=== PATIENT | male | born 1995 | race Caucasian/White ===

== ENCOUNTER 2024-06-30 08:32 | Outpatient (REF) | payer OTHER, SELFPAY | END 2024-06-30 08:33 | disposition home or self-care (01) | LOC: HO.SH 08:32 | PROVIDERS: PCP Internal Medicine; Visit Provider Physician Assistant | DX: Z01.118 Encounter for examination of ears and hearing with other abnormal findings (principal); H90.3 Sensorineural hearing loss, bilateral | CPT/HCPCS: 92557; 92567; 92588 ==

== ENCOUNTER 2024-08-14 14:24 | Outpatient (REF) | payer OTHER, SELFPAY ==
--- OUTSIDE RECORDS SUMMARY | 2024-08-14 17:12 | XMS_ITS ---
Author Organization [facility] Address [address] [place] [id number] Care Team Providers Care Air Traffic Supervisor Name Role Phone DEVYN BETTY Unavailable [phone] Allergies No Known Allergies Results Component Value Reference Range Notes HIV Ab/p24 Ag with Reflex-08 [id number] Reviewed date:06/15/2024 07:53:29 AM Interpretation:Negative Performing Lab:[facility], [address] [facility], [address], [place], Phone - [phone], Director - [facility] Notes/Report: HIV Ab/p24 Ag Screen Non Reactive Non Reactive HIV-1/HIV-2 antibodies and HIV-1 p24 antigen were NOT detected. There is no laboratory evidence of HIV infection. HIV Negative M genitalium JESSICA, Urine-1800 25 Reviewed date:06/17/2024 07:19:39 AM Interpretation:Negative Performing Lab:[facility], [address] [facility], [place], Phone - [phone], Director - Ryley Notes/Report: Mycoplasma genitalium JESSICA Negative Negative REASON FOR VISIT Mycoplasma retesting, STI screening Medications Medication SIG (Take, Route, Fr equency, Duration) Notes Start Date End Date Status ZyrTEC Not-Taking Social History Sex Assigned At : Social History Observation Description Sex Assigned At Male Vital Signs Blood pressure systolic 124 mm Hg 06/13/20 24 Blood pressure diastolic 78 mm Hg 024 Height 6'1 in 06/13/2024 Weight 205.8 lbs 06/13/2024 BMI 27.15 kg/m2 06/13/2024 Encounters Encounter Location Date Provider Diagnosis [facility] [place], [place] [id number] 06/13/2024 BETTY GABAI Counseling, unspecif ied Z71.9 ; Encounter for screening for other infectious and parasitic diseases Z11.8 ; Other problems related to lifestyle Z72.89 and Encounter for screening for human immunodeficiency virus [HIV] Z11.4 Assessments Encounter Date Diagnosis (ICD Code) Assessment Notes Treatment Notes Treatment Clinical Notes Section Notes 06/13/2024 Counseling, unspecified (ICD-10 - Z71.9) Spent ___ minutes doing the following: Chart Prep Obtaining/review ing history Performing medically necessary exam Counseling/Coord ination of Care Documenting the visit Educating the patient Ordering medication/test/ procedures Communication of test results Established Patient: 05578 10 Minutes 06/13/2024 Encounter for screening for other infectious and parasitic diseases (ICD-10 - Z11.8) Clt reports they took meds and tolerated well. Partner was also treated, and they abstained x 14 days while on regimen. Denies change in partner or concern of re exposure. Will re test, although low likelihood of persistent positive Spent ___ minutes doing the following: Chart Prep Obtaining/review ing history Performing medically necessary exam Counseling/Coord ination of Care Documenting the visit Educating the patient Ordering medication/test/ procedures Communication of test results Established Patient: 02912 10 Minutes 06/13/2024 Other problems related to lifestyle (ICD-10 - Z72.89) Spent ___ minutes doing the following: Chart Prep Obtaining/review ing history Performing medically necessary exam Counseling/Coord ination of Care Documenting the visit Educating the patient Ordering medication/test/ procedures Communication of test results Established Patient: 11655 10 Minutes 06/13/2024 Encounter for screening for human immunodeficiency virus [HIV] (ICD-10 - Z11.4) Redraw of blood d/t previous TNP Spent ___ minutes doing the following: Chart Prep Obtaining/review ing history Performing medically necessary exam Counseling/Coord ination of Care Documenting the visit Educating the patient Ordering medication/test/ procedures Communication of test results Established Patient: 32019 10 Minutes Plan Of Treatment Treatment Notes Assessment Notes Encounter for screening for other infectious and parasitic diseases Clt reports they took meds and tolerated well. Partner was also treated, and they abstained x 14 days while on regimen. Denies change in partner or concern of re exposure. Will re test, although low likelihood of persistent positive Encounter for screening for human immunodeficiency virus [HIV] Redraw of blood d/t previous TNP Next Appt Details Follow Up: prn, Reason: Progress Notes * Jose ZUÑIGAOB:1995 (29 yo M)Acc No.[id number]:06/13/2024 Progress Notes Patient:?Daniel ZUÑIGA Provider:?Betty Smith NP :1995???Age:29 Y???Sex:Male Hank e:06/13/2024 Address:[address] [place] [address], [facility], [id number] Subjective: * Chief Complaints: * ???Mycoplasma retestingSTI s creening * HPI: ???Visit Narrative:? Clt was treated for mycoplasma genitalium last month, here for re test. Denies change in partner since last tested. ?Current form of control:?w/d.?Presenting Symptoms:?no Sx or concerns.?Last date of UPI:?06/11/2024.?Other Notes for the Clinician:?Clt requesting routine STI screening and mycoplasma retesting. Denies any changes in partners since last visit.? * Medical History:? * Surgical History:?tonsillect waylon * Hospitalization/Major Diagno stic Procedure:?No Hospitalization History. * Family History:? No known family history. * Social History:?Food Access:?Food Access?The Client's current access to food is?Secure Food Access ???Housing:?Housing?The client's current living situation is:?stable housing ???Reproductive Life Plan:?Reproductive Life Plan?Do you want to have children??Yes, I want to have children ?How long would you like to wait until you/your partner becomes ??1 - 5 years ?How sure are you that you will be able to use your control method without any problems??Sure ???Sexual History:?Sexual History?Sexual History Reviewed:?Partners, Practices, Protection/Past STIs, Prevention of ?Currently sexually active??Yes ?Sexually active with:?Women ?Number of female partners?1 ?Your sexual activities include:?oral intercourse, vaginal intercourse ?Reviewed types of EC??No ?Do you use condoms??No ?Date of last unprotected intercourse:?06/11/2024 ?Number of partners in past 3 months:?1 ?Number of partners in past year:?1 ?What is the client's primary method to prevent at the end of their visit??Withdrawal ?Does your partner(s) currently have any STIs??No ?Completed Gardasil vaccination series??No ???HIV Risk Assessment:?Additional Questions?Is an HIV Risk Assessment being conducted??Yes ?Have you been tested for HIV before??Yes ?Did you have a blood transfusion prior to 1985??No ?Do you have an unlicensed body piercing or tattoo??No ???PrEP for HIV:?PrEP for HIV?Is the client interested in beginning/continuing PrEP for HIV??No ???Relationships:?Relationships?Has the client experienced any of the following:?Client has never experienced harmful relationships ???Human Trafficking:?Human Trafficking?Experienced:?No ???Tobacco Use:?Tobacco Use?Do you/have you used tobacco??No ?Tobacco Smoking Status?Never smoker ???Drugs/Alcohol:?Drug/Alcohol Use?Do you or have you used drugs??No ?Do you or have you used alcohol??Yes, currently occasional use ???Counseling Provided:?Counseling Provided?Please indicate the length of time, in minutes, that counseling was provided.?6 ?Counseling Was Provided By:?obi * Medications:?Not-Taking/PRNZ yrTEC Not-Taking/PRN ZyrTEC DiscontinuedDoxycycline Hyclate 100 MG Tablet 1 tablet Orally Twice daily Complete doxycycline regimen prior to starting moxifloxacin regimenMoxifloxacin HCl 400 MG Tablet 1 tablet Orally Once a day Complete doxycycline regimen prior to starting moxifloxacin regimenMedication List reviewed and reconciled with the patientDiscontinued Doxycycline Hyclate 100 MG Tablet 1 tablet Orally Twice daily Complete doxycycline regimen prior to starting moxifloxacin regimenDiscontinued Moxifloxacin HCl 400 MG Tablet 1 tablet Orally Once a day Complete doxycycline regimen prior to starting moxifloxacin regimenMedication List reviewed and reconciled with the patient * Allergies:?N.K.D.A.no[Allerg ies Verified] Objective: * Vitals:?BP:124/78mm Hg, Ht: 6'1 , Wt:205.8lbs, BMI:27.15Index, Ht-cm: 185.42, Wt-k.35. * Examination: ???General Examination: ?GENERAL APPEARANCE:?pleasant, in no acute distress.?PSYCH:?alert, oriented.? Assessment: * Assessment: 1.?Encounter for screening f or other infectious and parasitic diseases - Z11.8 (Primary)???2.?Counseling, unspecified - Z71.9???3.?Other problems related to lifestyle - Z72.89???4.?Encounter for screening for human immunodeficiency virus [HIV] - Z11.4??? Spent ___ minutes doing the following: Chart Prep Obtaining/reviewing history Performing medically necessary exam Counseling/Coordination of Care Documenting the visit Educating the patient Ordering medication/test/procedures Communication of test results Established Patient: 94252 10 Minutes Plan: * Treatment: 2.?Encounter for screening f or human immunodeficiency virus [HIV]?LAB: HIV Ab/p24 Ag with Reflex-[id number] (Collection Date & Time - 06/13/2024 10:53 AM) Notes: Redraw of blood d/t previous TNP?? * Procedure Codes:? * Follow Up:?prn * Billing Information: * Visit Code:? 93023 Existing - Minimal Complexity (IN USE). * Procedure Codes:? * Sign off status: Completed true * Provider:?Betty Smith NP Date:? 024 Generated for Hany avila/Nicole/eTransmitting on:?08/14/2024 05:12 PM EST History and Physical Notes * HPI (History of Present Illness) Category Sub-Category Detail Notes Category Not es Visit Narrative Current form of control: w/d Presenting Symptoms: no Sx or concerns Other Notes for the Clinician: Clt reque sting routine STI screening and mycoplasma retesting. Denies any changes in partners since last visit Last date of UPI: 06/11/2024 Examination Category Sub-Category Detail Notes Category Not es General Examination GENERAL APPEARANCE: pleasant, in n o acute distress PSYCH: alert, oriented
--- OUTSIDE RECORDS SUMMARY | 2024-08-14 17:12 | XMS_ITS | Patient Health Record ---
Author Organization [facility] Address [address] [place] [id number] Care Team Providers Care Esthetician Facialist Name Role Phone ASA SHEPARD Unavailable [phone] ARYCOLIN Jarquin Unavailable [phone] Allergies No Known Allergies Results Component Value Reference Range Notes HIV Ab/p24 Ag with Reflex-08 [id number] Reviewed date:06/15/2024 07:53:29 AM Interpretation:Negative Performing Lab:[facility], [address], [address], [place], Phone - [phone], Director - [facility] Notes/Report: HIV Ab/p24 Ag Screen Non Reactive Non Reactive HIV-1/HIV-2 antibodies and HIV-1 p24 antigen were NOT detected. There is no laboratory evidence of HIV infection. HIV Negative M genitalium JESSICA, Urine-1800 25 Reviewed date:06/17/2024 07:19:39 AM Interpretation:Negative Performing Lab:[facility] [place], [address] [facility], Phone - [phone], Director - Ryley Notes/Report: Mycoplasma genitalium JESSICA Negative Negative Written Authorization Reviewed date:06/06/2024 12:20:02 PM Interpretation: Performing Lab:[facility] [place], [address] [facility], [place], Phone - [phone], Director - Ryley Notes/Report: Written Authorization Written Authorization Received. Authorization received from [employer] 05-30-2024 Logged by David Courtney Genital Mycoplasmas JESSICA, Uri [id number] Reviewed date:05/25/2024 08:51:37 AM Interpretation:Mycoplasma G. Positive Performing Lab:[facility] [place], [address] [facility], [place], Phone - [phone], Director - Ryley Notes/Report: Test(s) 237221-Wlffqwhshf hominis JESSICA; 492329-Chbhhkinoa spp JESSICA was developed and its performance characteristics determined by [facility]. It has not been cleared or approved by the Food and Drug Administration. Mycoplasma genitalium JESSICA Positive Negative Mycoplasma hominis JESSICA Negative Negative Ureaplasma spp JESSICA Negative Negative Ct, Ng, Trich vag by JESSICA-[id number] Reviewed date:05/08/2024 10:49:48 AM Interpretation:Negative Performing Lab:[facility] [place], [address], [address], [place], Phone - [phone], Director - [facility] Notes/Report: Chlamydia by JESSICA Negative Negative Gonococcus by JESSICA Negative Negative Trich vag by JESSICA Negative Negative Genital Mycoplasmas JESSICA, [facility] [id number] Reviewed date:05/22/2024 02:54:11 PM Interpretation:TNP Performing Lab:[facility], [address] [place] [address], Phone - [phone], Director - [facility] Notes/Report: Test(s) 492500-Mnfmjmylpv hominis JESSICA; 868601-Iuwfmvdvma spp JESSICA was developed and its performance characteristics determined by [facility]. It has not been cleared or approved by the Food and Drug Administration. Mycoplasma genitalium JESSICA TNP Te st not performed. No Aptima transport received. Mycoplasma hominis JESSICA TNP Test not performed Ureaplasma spp JESSICA TNP Test not performed Request Problem TNP Test not performed. No Aptima transport received. TEST: [id number] Genital Mycoplasmas JESSICA, Swab HCV Antibody RFX to Quant PC [id number] Reviewed date:05/08/2024 10:50:16 AM Interpretation:Negative Performing Lab[facility], [address], [place], Phone - [phone], Director - [facility] Notes/Report: HCV Ab Non Reactive Non Reactive Interpretation: Not infected with HCV unless early or acute infection is suspected (which may be delayed in an immunocompromised individual), or other evidence exists to indicate HCV infection. T pallidum Screening [place] -[id number] Reviewed date:05/08/2024 10:50:24 AM Interpretation:Negative Performing Lab:[facility] [place], [address], [address], [place], Phone - [phone], Director - [facility] Notes/Report: T pallidum Antibodies Non Reactive Non Reactive Hepatitis B Surf Ab Quant-00 [id number] Reviewed date:05/08/2024 10:32:50 AM Interpretation:Not Immune Performing Lab:[facility], [address], [address], [place], Phone - [phone], Director - [facility] Notes/Report: Hepatitis B Surf Ab Quant 3.8 Immunity>10 mIU /mL Status of Immunity Anti-HBs Level Inconsistent with Immunity 0.0 - 10.0 Consistent with Immunity >10.0 HBsAg Screen-[id number] Reviewed date:05/08/2024 10:49:58 AM Interpretation:Negative Performing Lab:[facility], [address], [address], [place], Phone - [phone], Director - [facility] Notes/Report: HBsAg Screen Negative Negative APTIMA COMBO 2 CT/NG, Throat /Pharyngeal Reviewed date:05/15/2024 12:53:10 PM Interpretation:Negative Performing Lab:[facility], [facility] [place], [address] Gregory Jaime DO Notes/Report: GONORRHEA, AMPLIFIED NEGATIVE NEGATIVE CHLAMYDIA, AMPLIFIED NEGATIVE NEGATIVE DNA Test Results SEX: M : 1995 AGE: 28 [id number] CLINIC ID: [id number] SS: PHYSICIAN: COLIN MCALLISTER CNM COLLECTED BY: [id number] Specimen Source: Throat/Pharyngeal Specimen Type: Swab, Cristobal PCR Medium Neisseria gonorrhoeae: NEGATIVE Normal Value: Negative Chlamydia trachomatis: NEGATIVE Normal Value: Negative Reason For Referral No Information Medications Medication SIG (Take, Route, Fr equency, Duration) Notes Start Date End Date Status ZyrTE Not-Taking Social History Sex Assigned At : Social History Observation Description Sex Assigned At Male Vital Signs Blood pressure diastolic 78 mm Hg 06/13/2024 Height 6'1 in 06/13/2024 Blood pressure systolic 124 mm Hg 06/13/2024 Weight 205.8 lbs 06/13/2024 BMI 27.15 kg/m2 06/13/2024 Encounters Encounter Location Date Provider Diagnosis [address] [id number] 05/04/2024 COLIN MCALLISTER Encounter for screen ing for infections with a predominantly sexual mode of transmission Z11.3 ; Counseling, unspecified Z71.9 ; Other problems related to lifestyle Z72.89 ; Encounter for screening for other viral diseases Z11.59 ; Encounter for screening for other infectious and parasitic diseases Z11.8 ; Encounter for screening for human immunodeficiency virus [HIV] Z11.4 and [facility] [id number] 06/13/[facility]24 ASA SHEPARD Counseling, unspecif ied Z71.9 ; Encounter for screening for other infectious and parasitic diseases Z11.8 ; Other problems related to lifestyle Z72.89 and Encounter for screening for human immunodeficiency virus [HIV] Z11.[address] [id number] 05/05/2024 COLIN MCALLISTER [address] [id number] 05/22/2024 COLIN MCALLISTER Assessments Encounter Date Diagnosis (ICD Code) Assessment Notes Treatment Notes Treatment Clinical Notes Section Notes 05/04/2024 Encounter for screening for infections with a predominantly sexual mode of transmission (ICD-10 - Z11.3) Discussed STI risks, screenings that are available through [facility] and safe sex. Clt aware of lab processing times and how to view results on portal and how positive results will be communicated Need 2 out of 3 Sections from A-C Section A) Problems (only need one from below) One acute or uncomplicated illness/injury Section B) Data (at least one of the following categories in this section) Category 1: (Choose 2 of the following): Order unique tests Section C) Risk Document low risk of morbidity/morta lity 05/04/2024 Counseling, unspecified (ICD-10 - Z71.9) Need 2 out of 3 Sections from A-C Section A) Problems (only need one from below) One acute or uncomplicated illness/injury Section B) Data (at least one of the following categories in this section) Category 1: (Choose 2 of the following): Order unique tests Section C) Risk Document low risk of morbidity/morta lity 06/13/2024 Encounter for screening for other infectious and parasitic diseases (ICD-10 - Z11.8) Clt reports they took meds and tolerated well. Partner was also treated, and they abstained x 14 days while on regimen. Denies change in partner or concern of re exposure. Will re test, although low likelihood of persistent positive Spent ___ minutes doing the following: Chart Prep Obtaining/revie wing history Performing medically necessary exam Counseling/Coor dination of Care Documenting the visit Educating the patient Ordering medication/test /procedures Communication of test results Established Patient: 34337 10 Minutes 06/13/2024 Counseling, unspecified (ICD-10 - Z71.9) Spent ___ minutes doing the following: Chart Prep Obtaining/revie wing history Performing medically necessary exam Counseling/Coor dination of Care Documenting the visit Educating the patient Ordering medication/test /procedures Communication of test results Established Patient: 82954 10 Minutes 06/13/2024 Other problems related to lifestyle (ICD-10 - Z72.89) Spent ___ minutes doing the following: Chart Prep Obtaining/revie wing history Performing medically necessary exam Counseling/Coor dination of Care Documenting the visit Educating the patient Ordering medication/test /procedures Communication of test results Established Patient: 99316 10 Minutes 05/04/2024 Other problems related to lifestyle (ICD-10 - Z72.89) Need 2 out of 3 Sections from A-C Section A) Problems (only need one from below) One acute or uncomplicated illness/injury Section B) Data (at least one of the following categories in this section) Category 1: (Choose 2 of the following): Order unique tests Section C) Risk Document low risk of morbidity/morta lity 06/13/2024 Encounter for screening for human immunodeficiency virus [HIV] (ICD-10 - Z11.4) Redraw of blood d/t previous TNP Spent ___ minutes doing the following: Chart Prep Obtaining/revie wing history Performing medically necessary exam Counseling/Coor dination of Care Documenting the visit Educating the patient Ordering medication/test /procedures Communication of test results Established Patient: 98643 10 Minutes 05/04/2024 Encounter for screening for other viral diseases (ICD-10 - Z11.59) Need 2 out of 3 Sections from A-C Section A) Problems (only need one from below) One acute or uncomplicated illness/injury Section B) Data (at least one of the following categories in this section) Category 1: (Choose 2 of the following): Order unique tests Section C) Risk Document low risk of morbidity/morta lity 05/04/2024 Encounter for screening for other infectious and parasitic diseases (ICD-10 - Z11.8) Need 2 out of 3 Sections from A-C Section A) Problems (only need one from below) One acute or uncomplicated illness/injury Section B) Data (at least one of the following categories in this section) Category 1: (Choose 2 of the following): Order unique tests Section C) Risk Document low risk of morbidity/morta lity 05/04/2024 Encounter for screening for human immunodeficiency virus [HIV] (ICD-10 - Z11.4) Need 2 out of 3 Sections from A-C Section A) Problems (only need one from below) One acute or uncomplicated illness/injury Section B) Data (at least one of the following categories in this section) Category 1: (Choose 2 of the following): Order unique tests Section C) Risk Document low risk of morbidity/morta lity 05/04/2024 Contact with or exposure to STI (ICD-10 - Z20.2) Reviewed clt's exposure concerns, testing options and presumptive tx options. Clt is currently asymptomatic. Partner tx may help to lower reinfection for partner. Clt would like to do testing initially and treat if positive. No sexual activity until testing and tx plan confirmed. Will confirm if clt testing positive and if so mycoplasma genitalium vs hominis as tx regimens differ slightly: doxy plus moxi x1 wk each vs doxy x 1 wk for hominis Need 2 out of 3 Sections from A-C Section A) Problems (only need one from below) One acute or uncomplicated illness/injury Section B) Data (at least one of the following categories in this section) Category 1: (Choose 2 of the following): Order unique tests Section C) Risk Document low risk of morbidity/morta lity Plan Of Treatment No Information Insurance Providers Payer Name Payer Address Payer Phone Subscriber Number Group Number Insured Name Patient Relationship to Insured Coverage Start Date Coverage End Date [place] [address] [place] [id number] Daniel Brenner Self - patient is the insured Medical (General) History Medical History History ICD Code Mycoplasma genitalium Surgical History Surgery Date(Month/Year) tonsillectomy
--- OUTSIDE RECORDS SUMMARY | 2024-08-14 17:12 | XMS_ITS | Encounter Summary ---
Author Organization [employer] Address [address] [place] [address] Care Team Providers Care Senior Staff Specialized Employment Name Role Phone Anna Galo MD Primary Care Provider [phone] Reason for Visit * Reason Onset Date Comments Exposure to STD 04/28/2024 Encounter Details Date Type Department Care Team ([facility] st Contact Info) Description 04/28/2024 Nurse Triage Adult Medicine [address] [phone] Anna Galo MD [address] [place] [id number] Exposure to STD Social History Tobacco Use Types Packs/Day Years Used Date Smoking Tobacco: Never Smokeless Tobacco: Never Alcohol Use Standard Drinks/Week Comments Yes 0 (1 standard drink = 0.6 oz pur e alcohol) Sex and Gender Information Value Date Recorded Sex Assigned at Not on file Legal Sex Male 2:45 PM EDT Gender Identity Not on file Sexual Orientation Not on file documented as of this encounter Progress Notes * Keyla Manzano RN - 04/28/2024 3:32 PM EST Answer Assessment - Initial Assessment Questions 1. SYMPTOMS: Do you have any symptoms of a sexually transmitted infection (STI)? If Yes, ask: What are they? none 2. TYPE: What sexually transmitted infection do you have questions about? none 3. EXPOSURE: Were you exposed to an STI? If Yes, ask: When and what kind of exposure? none 4. PREVENTION: Do you have questions about preventing AIDS and other sexually transmitted infections? Want to have testing done 5. : Is there any chance you are ? When was your last menstrual period? N/A Protocols used: STI [id number] * Hilary Polina Lira - 04/28/2024 3:24 PM EST Patient call requires triage: Symptoms patient is presenting: Wants an STD test How long has patient had these symptoms?: no symptoms just wants to be checked For ALL patients calling to schedule any appointment (routine, sick visit, follow up, consult, etc.) in the outpatient setting please ask the following questions: Do you have fever of higher than 101, sore throat with difficulty swallowing or severe shortness ofbreath? no If YES to any of these above symptoms, send a message to triage and do not book. Red dot. If no, an audio or video visit should be booked. Have you had close contact with someone with Coronavirus in the last 14 days? no Have you traveled abroad? no Have you traveled recently to another state outside of [place], [place], [place], [place], [place], [place], [place]? no o If yes, did you quarantine for 14 days or have a negative covid test? no If yes to any of the above, patient is not to be scheduled in office until after 14 day quarantine or negative covid test. If pain or injury related was it due to an accident at work or from a motor vehicle accident? If yes, date of accident/Injury: No If yes, gather 3rd libertarian insurance information Third Libertarian Information: not applicable PCP: Anna Galo MD Payor: / No coverage found. documented in this encounter Plan of Treatment Not on file documented as of this encounter Visit Diagnoses Not on filedocumented in this encounter Care Teams Senior Staff Specialized Employment Relationship Specialty Start Date End Date Anna Galo MD [address] [place] [phone] PCP - General 08/14/22 documented as of this encounter
--- OUTSIDE RECORDS SUMMARY | 2024-08-14 17:12 | XMS_ITS | Clinical Summary ---
Author Organization Patient Business Ser [facility] Address [address] [place] [address] Care Team Providers Care Nascar Racer Name Role Phone Anna Galo MD Primary Care Provider [phone] Allergies Active Allergy Reactions Criticality Noted Date Comments Aspirin 06/21/2024 Medications ibuprofen (ADVIL,MOTRIN) 800 mg tablet Take 1 tablet (800 mg total) by mouth every 8 (eight) hours if needed (Pain). 4 Active triamcinolone (KENALOG) 0.1 % cream Apply 1 applicator topically 2 (two) times a day. 4 Active cetirizine (ZyrTEC) 10 mg capsuleIndicati ons:Seasonal allergies Take 1 capsule (10 mg total) by mouth 1 (one) time each day. 90 capsule 1 5 Active fluticasone propionate (FLONASE) 50 mcg/actuation nasal spray Administer 1 spray into each nostril 1 (one) time each day. 16 g 1 5 Active Active Problems Problem Noted Date Diagnosed Date Seasonal allergies 06/21/2024 Tonsil stone 03/16/2023 Gastroesophageal reflux disease 03/16/2023 Enlarged tonsils 03/16/2023 Dyspnea on exertion 03/16/2023 Dysphagia 03/16/2023 Acute viral conjunctivitis of both eyes 03/16/20 23 Encounters Date Type Department Care Team Description 06/30/2024 Telephone Adult Medicine [address] [phone] Anna Galo MD Provider Call Back ; Results; Referral 06/21/2024 8:30 AM EST Office Visit Adult Medicine [address] [phone] Ashli Lincoln PA Routine physical examination (Primary Dx); Decreased hearing, unspecified laterality; Seasonal allergies; Need for prophylactic vaccination and inoculation against influenza; Need for Tdap vaccination; Screen for sexually transmitted diseases from Last 3 Months Immunizations Name Administration Dates Next Due DTaP (Infanrix) 6wks to less than 7yo ,09/06/1995,05/11/1995,01/29,1994 [id number] (Pentacel) 2mo to less than 5yo 09/06/1995,05/11/1995,01/29/1995,09/01 H1N1 Inj Preservative Free 04/17/2009 HPV, Quadrivalent 03/04/2010 Hep A, Unspecified 09/12/2002,11/22/2001 Hepatitis B Pediatric (Enger ix B; Recombivax HB) to less than 20 yo 06/10/1995,01/29/1995,1994 Influenza trivalent, MDCK, 0 .5mL, preservative free (Flucelvax) 6mo and older 06/21/2024 Influenza trivalent, with pr eservative (Fluzone; Afluria) 6mo and older 03/08/2015,03/04/2010,05/01/2008 MMR, measles mumps and rubel la Live (Priorix; M-M-R II) 12mo and older 05/31/1998,06/10/1995 Meningococcal MCV4P 10/13/2006 OPV 05/31/1998, 5,01/29/1995,09/01 Pfizer SARS-CoV-2 COVID-19, mRNA, LNP-S, preservative free 12/11/2020,11/21/2020 Td Tetanus diptheria (Tdvax) 7yo and older 11/14/2004 Tdap Tetanus diptheria acell ular pertussis (Boostrix; Adacel) 7yo and older 06/21/2024,03/08/2015,03/04/2010 Varicella live (Varivax) 12m o and older 11/30/2006,10/13/2006,07/22/2000 Surgical History Surgery Date Site/Laterality Comments WISDOM TOOTH EXTRACTION PROCEDURE: HISTORICAL WISDOM TEETH EXTRACTION TONSILLECTOMY 06/14/2023 - 07/14/2023 Bilateral Medical History Medical History Date Comments Patient denies medical problems DX:Patient denies medical problems Family History Medical History Relation Name Comments No Known Problems Brother 1 No Known Problems Brother 2 No Known Problems Brother 3 No Known Problems Brother 4 No Known Problems Brother 5 No Known Problems Father No Known Problems Maternal Grandfather No Known Problems Maternal Grandmother No Known Problems Mother No Known Problems Paternal Grandfather No Known Problems Paternal Grandmother No Known Problems Sister Relation Name Status Comments Brother 1 x3 Brother 2 Alive Brother 3 Alive Brother 4 Alive Brother 5 Alive Father Alive health unknown Maternal Grandfather Maternal Grandmother Mother Alive healthy Paternal Grandfather Paternal Grandmother Sister x1 Social History Tobacco Use Types Packs/Day Years Used Date Smoking Tobacco: Never Smokeless Tobacco: Never Tobacco Cessation:Counseling Given: Not Answered Alcohol Use Standard Drinks/Week Comments Yes 0 (1 standard drink = 0.6 oz pur e alcohol) occ Housing Instability Answer Date Recorde d Are you worried that in the next 2 months you may not have stable housing? No 06/21/2024 Food Access & Nutrition Answer Date Rec orded Do you have access to a vari ety of food including fruits and vegetables? Yes 06/21/2024 Access to Healthcare Answer Date Record ed Within the last 3 months, ho w many times did you visit the emergency department for your medical care? 0 06/21/2024 Health Literacy Answer Date Recorded How often do you need to hav e someone help you when you read instructions, pamphlets, or other written material from your doctor or pharmacy? Never 06/21/2024 Caregiver: How often do you need to have someone help you when you read instructions, pamphlets, or other written material from your doctor or pharmacy? Not on file 06/21/2024 Financial Risk Answer Date Recorded How hard is it for you to pa y for the very basics like food, housing, medical care, and air conditioning / heating? Not very hard 06/21/2024 Transportation Answer Date Recorded Has the lack of transportati on kept you from meetings, work, or from getting things needed for daily living? No Has the lack of transportati on kept you from medical appointments or from getting medications? No 06/21/2024 Social Isolation Answer Date Recorded How often do you feel lonely or isolated from th ose around you? Never 06/21/2024 Food Risk Answer Date Recorded Within the past 12 months we worried whether our food would run out before we got money to buy more. Never true 06/21/2024 Within the past 12 months th e food we bought just didn't last and we didn't have money to get more. Never true 06/21/2024 Dependent Care Answer Date Recorded Do you need help finding or paying for care for your loved ones. For example, childbirth educator or elderly care for an older adult? No 06/21/2024 Education Answer Date Recorded Do you think completing more education or training, like finishing a GED, going to college, or learning a trade, would be helpful for you? Yes 06/21/2024 Employment and Income Answer Date Recor ded During the last four weeks, have you been actively looking for work? Yes 06/21/2024 Living Situation Answer Date Recorded What is your living situation? 0 06/21/2024 Sex and Gender Information Value Date Recorded Sex Assigned at Not on file Legal Sex Male 2:45 PM EDT Gender Identity Not on file Sexual Orientation Not on file Obstetrics History Last Filed Vital Signs Vital Sign Reading Time Taken Comments Blood Pressure 102/70 06/21/2024 8:27 AM EST Pulse 72 06/21/2024 8:27 AM EST Temperature 36.7 ??C (98.1 ??F) 06/21/2024 8:27 AM ES T Respiratory Rate 14 06/21/2024 8:27 AM EST Oxygen Saturation - - Inhaled Oxygen Concentration - - Weight 92.4 kg (203 lb 12.8 oz) 06/21/2024 8:27 AM EST Height 181.6 cm (5' 11.5 ) 06/21/2024 8:27 AM ES T Body Mass Index 28.03 06/21/2024 8:27 AM EST Plan of Treatment Health Maintenance Due Date Last Done Comments HPV Vaccines (2 - Male 3-dose series) 04/01/2010 03/04/2010 Depression Screening 06/21/2025 06/21/2024 Social Influencers of Health Screening 06/21/2025 06/21/2024 Cholesterol Screening (Lipid Panel) 06/21/2029 06/21/2024, 01/19/2023 DTaP,Tdap,and Td Vaccines (10 - Td or Tdap) 06/21/2034 06/21/2024, 03/08/2015, 03/04/2010, Additional history exists Hepatitis B Vaccines Completed 06/10/1995, 01/29/1995, 1994 HIB Vaccines Completed 09/06/1995, 04/15, 01/29/1995, Additional history exists IPV Vaccines Completed 05/31/1998, 08/13, 05/11/1995, Additional history exists MMR Vaccines Completed 05/31/1998, 06/10/1995 Hepatitis A Vaccines Completed 09/12/2002, 11/23/19 Meningococcal ACWY Vaccine Aged Out 10/13/2006 N o longer eligible based on patient's age to complete this topic Varicella Vaccines Completed 11/30/2006, 0 10/13/2006, 07/22/2000 COVID-19 Vaccine Discontinued 12/11/2020, 11/21/2020 Hepatitis C Screening Completed 11/04/2023 HIV Screening Completed 06/21/2024, 11/04/2023 Influenza Vaccine Completed 06/21/2024, , 03/04/2010, Additional history exists Meningococcal B Vacine Aged Out No lo nger eligible based on patient's age to complete this topic Pneumococcal Vaccine: Pediatrics (0 to 5 Years) and At-Risk Patients (6 to 64 Years) Aged Out No longer eligible based on patient's age to complete this topic RSV Immunization Patients Under 20 months Aged Out No longer eligible based on patient's age to complete this topic Procedures Procedure Name Priority Date/Time Associated Diagnosis Comments CBC WITH AUTO DIFFERENTIAL Routine 06/21/2024 9:15 AM EST Routine physical examination CBC AND DIFFERENTIAL Routine 06/21/2024 9:15 AM EST Routine physical examination COMPREHENSIVE METABOLIC PANEL Routine 06/21/2024 9:15 AM EST Routine physical examination HEMOGLOBIN A1C Routine 06/21/2024 9:15 AM EST Routine physical examination LIPID PANEL WITH REFLEX TO DIRECT LDL Routine 06/21/2024 9:15 AM EST Routine physical examination THYROID STIMULATING HORMONE WITH REFLEX TO FREE T4 AND FREE T3 Routine 06/21/2024 9:15 AM EST Routine physical examination TREPONEMA PALLIDUM ANTIBODY WITH REFLEX TO RPR AND PARTICLE AGGLUTINATION Routine 06/21/2024 9:15 AM EST Screen for sexually transmitted diseases HIV 1, 2 ANTIBODY, P24 ANTIGEN WITH REFLEX TO DIFFERENTIATION Routine 06/21/2024 9:15 AM EST Screen for sexually transmitted diseases CHLAMYDIA TRACHOMATIS AND NEISSERIA GONORRHOEAE PCR Routine 06/21/2024 9:15 AM EST Screen for sexually transmitted diseases HM HEPATITIS C SCREENING Routine 11/04/2023 from Last 3 Months or Most Recently Relevant to Health Maintenance Results * HIV 1,2 antibody, p24 antigen with reflex to differentiation (06/21/2024 9:15 AM EST) HIV Combo AB/AG Negative Negative LAB CHEMISTRY METHOD 06/21/2024 1:26 PM EST [facility] Blood Venous blood specimen / Unknown Venipuncture / Unknown 06/21/2024 9:15 AM EST 06/21/2024 9:16 AM EST Narrative [facility] - 06/21/2024 1:26 PM EST This assay is a 4th generation assay allowing for earlier detection of HIV infection by detecting the presence of the HIV-1 p24 antigen as well as the traditional antibodies to HIV type 1 (including group O) and type 2. ??Use of a 4th generation assay is the current CDC recommendation for HIV screening. us Ashli SHEPHERD LAB BLOOD ORDERABLES Final Res ult [facility] [address] [place] [address], [place] [phone] * Treponema pallidum antibody with reflex to RPR and particle agglutination (06/21/2024 9:15 AM EST) [facility] T. Pallidum Antibodies Negative Negative LAB CHEMISTRY METHOD 06/21/2024 12:58 PM EST [facility] Blood Venous blood specimen / Unknown Venipuncture / Unknown 06/21/2024 9:15 AM EST 06/21/2024 9:16 AM EST Ashli SHEPHERD LAB BLOOD ORDERABLES Final Res ult Performing Organization Address [facility]/ZIP Co de Phone Number [facility] [address] [place] [address], [place] [phone] * Thyroid stimulating hormone with reflex to free t4 and free t3 (06/21/2024 9:15 AM EST) [facility] TSH 2.71 0.40 - 4.00 mcIU/mL LAB CHEMISTRY METHOD 06/21/2024 2:06 PM EST [facility] Blood Venous blood specimen / Unknown Venipuncture / Unknown 06/21/2024 9:15 AM EST 06/21/2024 9:16 AM EST Ashli SHEPHERD LAB BLOOD ORDERABLES Final Res ult Performing Organization Address City/[facility]/ZIP Co de Phone Number [facility] [address] [place] [address], [place] [phone] * (ABNORMAL) Lipid panel with reflex to direct LDL (06/21/2024 9:15 AM EST) [facility] Cholesterol 218(H) 0 - 200 mg/dL LAB CHEMISTRY METHOD 06/21/2024 1:07 PM [facility] Triglycerides 116 0 - 150 mg/dL LAB CHEMISTRY METHOD 06/21/2024 1:07 PM [facility] HDL 48 >=40 mg/dL LAB CHEMISTRY METHOD 06/21/2024 1:07 PM [facility] LDL Calculated 147(H) 0 - 100 mg/dL LAB CHEMISTRY METHOD 06/21/2024 1:07 PM [facility] VLDL Cholesterol Kevin 23.2 mg/dL LAB CHEMISTRY METHOD 06/21/2024 1:07 PM [facility] Non HDL Chol. (LDL+VLDL) 170(H) <145 mg/dL LAB CHEMISTRY METHOD 06/21/2024 1:07 PM [facility] Chol/HDL Ratio 4.5(H) 0.0 - 4.4 LAB CHEMISTRY METHOD 06/21/2024 1:07 PM [facility] Blood Venous blood specimen / Unknown Venipuncture / Unknown 06/21/2024 9:15 AM EST 06/21/2024 9:16 AM EST us Ashli SHEPHERD LAB BLOOD ORDERABLES Final Res ult [facility] [address] [place] [address], * (ABNORMAL) CBC auto differential (06/21/2024 9:15 AM EST) WBC 6.4 4.8 - 10.8 K/mcL LAB HEMETOLOGY METHOD 06/21/2024 10:39 AM [facility] RBC 4.80 4.50 - 5.50 M/mcL LAB HEMETOLOGY METHOD 06/21/2024 10:39 AM [facility] Hemoglobin 15.0 13.5 - 17.5 g/dL LAB HEMETOLOGY METHOD 06/21/2024 10:39 AM [facility] Hematocrit 46.1 42.0 - 54.0 % LAB HEMETOLOGY METHOD 06/21/2024 10:39 AM [facility] MCV 96.8 79.0 - 98.0 FL LAB HEMETOLOGY METHOD 06/21/2024 10:39 AM [facility] MCH 31.5 27.0 - 32.0 pcg LAB HEMETOLOGY METHOD 06/21/2024 10:39 AM [facility] MCHC 32.5 32.0 - 37.0 g/dL LAB HEMETOLOGY METHOD 06/21/2024 10:39 AM [facility] RDW 10.9(L) 11.0 - 15.0 % LAB HEMETOLOGY METHOD 06/21/2024 10:39 AM [facility] Platelets 267 130 - 400 K/mcL LAB HEMETOLOGY METHOD 06/21/2024 10:39 AM [facility] MPV 10.2 7.0 - 11.0 FL LAB HEMETOLOGY METHOD 06/21/2024 10:39 AM [facility] NRBC 0.0 <1.0 % LAB HEMETOLOGY METHOD 06/21/2024 10:39 AM [facility] NRBC Absolute 0.00 <0.10 K/mcL LAB HEMETOLOGY METHOD 06/21/2024 10:39 AM [facility] Neutrophils Relative 52.2 % LAB HEMETOLOGY METHOD 06/21/2024 10:39 AM [facility] Lymphocytes Relative 32.1 % LAB HEMETOLOGY METHOD 06/21/2024 10:39 AM [facility] Monocytes Relative 13.6 % LAB HEMETOLOGY METHOD 06/21/2024 10:39 AM [facility] Eosinophils Relative 1.3 % LAB HEMETOLOGY METHOD 06/21/2024 10:39 AM [facility] Basophils Relative 0.5 % LAB HEMETOLOGY METHOD 06/21/2024 10:39 AM [facility] Immature Granulocytes Relative 0.3 % LAB HEMETOLOGY METHOD 06/21/2024 10:39 AM EST [facility] Neutrophils Absolute 3.33 1.50 - 7.00 K/mcL LAB HEMETOLOGY METHOD 06/21/2024 10:39 AM [facility] Lymphocytes Absolute 2.05 1.00 - 5.00 K/mcL LAB HEMETOLOGY METHOD 06/21/2024 10:39 AM [facility] Monocytes Absolute 0.87 0.20 - 1.00 K/mcL LAB HEMETOLOGY METHOD 06/21/2024 10:39 AM [facility] Eosinophils Absolute 0.08 0.00 - 0.50 K/[facility] LAB HEMETOLOGY METHOD 06/21/2024 10:39 AM [facility] Basophils Absolute 0.03 0.00 - 0.20 K/mcL LAB HEMETOLOGY METHOD 06/21/2024 10:39 AM [facility] Immature Granulocytes Absolute 0.02 0.00 - 0.03 K/[facility] LAB HEMETOLOGY METHOD 06/21/2024 10:39 AM [facility] Blood Venous blood specimen / Unknown Venipuncture / Unknown 06/21/2024 9:15 AM EST 06/21/2024 9:16 AM EST us Ashli SHEPHERD LAB BLOOD ORDERABLES Final Res ult [facility] [address] [place] [address], * Chlamydia trachomatis and Neisseria gonorrhoeae molecular study (06/21/2024 9:15 AM EST) Neisseria gonorrhoeae PCR Negative Negative LAB MOLECULAR DIAGNOSTICS METHOD 06/21/2024 12:55 PM EST [facility] Chlamydia trachomatis PCR Negative Negative LAB MOLECULAR DIAGNOSTICS METHOD 06/21/2024 12:55 PM [facility] Swab Urine specimen / Unknown Non-blood Collection / Unknown 06/21/2024 9:15 AM EST 06/21/2024 9:16 AM EST us Ashli SHEPHERD LAB MICROBIOLOGY - GENERAL ORD ERABLES Final Result Performing Organization Address [facility]/ZIP Co de Phone Number [facility] [address] [place] [address], [place] [phone] * Hemoglobin A1c (06/21/2024 9:15 AM EST) [facility] Hemoglobin A1C 4.7 <6.5 % LAB CHEMISTRY METHOD 06/21/2024 1:04 PM [facility] Mean Bld Glu Estim. 88 mg/dL LAB CHEMISTRY METHOD 06/21/2024 1:04 PM [facility] Blood Venous blood specimen / Unknown Venipuncture / Unknown 06/21/2024 9:15 AM EST 06/21/2024 9:16 AM EST us Ashli SHEPHERD LAB BLOOD ORDERABLES Final Res ult Performing Organization Address City/[facility]/ZIP Co de Phone Number [facility] [address] [place] [address], [place] [phone] * (ABNORMAL) Comprehensive metabolic panel (06/21/2024 9:15 AM EST) [facility] Sodium 138 133 - 145 mmol/L LAB CHEMISTRY METHOD 06/21/2024 1:07 PM [facility] Potassium 4.3 3.5 - 5.5 mmol/L LAB CHEMISTRY METHOD 06/21/2024 1:07 PM [facility] Chloride 106 96 - 110 mmol/L LAB CHEMISTRY METHOD 06/21/2024 1:07 PM [facility] CO2 27 21 - 32 mmol/L LAB CHEMISTRY METHOD 06/21/2024 1:07 PM [facility] Anion Gap 5 3 - 11 LAB CHEMISTRY METHOD 06/21/2024 1:07 PM [facility] Glucose 98 70 - 100 mg/dL LAB CHEMISTRY METHOD 06/21/2024 1:07 PM [facility] BUN 14 5 - 25 mg/dL LAB CHEMISTRY METHOD 06/21/2024 1:07 PM [facility] Creatinine 1.34(H) 0.70 - 1.30 mg/dL LAB CHEMISTRY METHOD 06/21/2024 1:07 PM [facility] eGFR 73 >=60 mL/min/1. 73m2 LAB CHEMISTRY METHOD 06/21/2024 1:07 PM [facility] Comment:Calculation based on the??Chronic Kidney Disease Epidemiology Collaboration (CKD-EPI) equation refit??without adjustment for race. BUN/Creatinine Ratio 10.4 LAB CHEMISTRY METHOD 06/21/2024 1:07 PM [facility] Calcium 9.1 8.5 - 10.5 mg/dL LAB CHEMISTRY METHOD 06/21/2024 1:07 PM [facility] AST (SGOT) 28 10 - 42 unit/L LAB CHEMISTRY METHOD 06/21/2024 1:07 PM [facility] ALT (SGPT) 29 10 - 60 unit/L LAB CHEMISTRY METHOD 06/21/2024 1:07 PM [facility] Alkaline Phosphatase 93 42 - 121 unit/L LAB CHEMISTRY METHOD 06/21/2024 1:07 PM [facility] Total Protein 7.7 6.0 - 8.0 g/dL LAB CHEMISTRY METHOD 06/21/2024 1:07 PM [facility] Albumin 3.9 3.2 - 5.0 g/dL LAB CHEMISTRY METHOD 06/21/2024 1:07 PM [facility] Total Bilirubin 0.8 0.0 - 1.4 mg/dL LAB CHEMISTRY METHOD 06/21/2024 1:07 PM EST [facility] Blood Venous blood specimen / Unknown Venipuncture / Unknown 06/21/2024 9:15 AM EST 06/21/2024 9:16 AM EST us Ashli SHEPHERD LAB BLOOD ORDERABLES Final Res ult [facility] [address] [place] [address], * Hepatitis C Screening (11/04/2023) Hepatitis C Screening Abstracted us Historical Provider HEALTH MAINTENANCE Final Result from Last 3 Months or Most Recently Relevant to Health Maintenance Insurance [facility] Care Teams Nascar Racer Relationship Specialty Start Date End Date Anna Galo MD [address] [place] [address] [phone] PCP - General 08/14/22
--- OUTSIDE RECORDS SUMMARY | 2024-08-14 17:13 | XMS_ITS ---
Author Organization [facility] Address [address] [id number] Care Team Providers Care Curing Oven Tender Name Role Phone AYR, COLIN Unavailable [phone] REASON FOR VISIT Positive results, lab error Social History Sex Assigned At : Social History Observation Description Sex Assigned At Male Encounters Encounter Location Date Provider Diagnosis [address] [phone] 05/22/2024 COLIN MCALLISTER Plan Of Treatment No Information Progress Notes * Lai ZUÑIGARafiOB:1995 (28 yo M)Acc No.[id number]:05/22/2024 Patient:?Daniel ZUÑIGA :1995???Age:28 Y???Sex:Male [address], [place], [address] * true * Date:? Generated for Annamariai ausitn/Nicole/eTransmitting on:?08/14/2024 05:12 PM EST
--- OUTSIDE RECORDS SUMMARY | 2024-08-14 17:13 | XMS_ITS ---
Author Organization [facility] Address [address] [place] [id number] Care Team Providers Care Golf Course Superintendent Name Role Phone COLIN MCALLISTER Unavailable [phone] Allergies No Known Allergies REASON FOR VISIT rx Medications Medication SIG (Take, Route, Frequency, Duration) Notes Start Date End Date Status Doxycycline Hyclate 100 MG 1 tablet Orally Twice daily for 7 days Complete doxycycline regimen prior to starting moxifloxacin regimen 05/05/2024 Active Moxifloxacin HCl 400 MG 1 tablet Orally Once a day for 7 days Complete doxycycline regimen prior to starting moxifloxacin regimen 05/05/2024 Active Social History Sex Assigned At : Social History Observation Description Sex Assigned At Male Encounters Encounter Location Date Provider Diagnosis [address] [phone] 05/05/2024 COLIN MCALLISTER Plan Of Treatment Medication Medication Name Sig Start Date Stop Date Notes Doxycycline Hyclate 100 MG 1 tablet Oral ly Twice daily for 7 days 05/05/2024 Moxifloxacin HCl 400 MG 1 tablet Orally Once a day for 7 days 05/05/2024 Progress Notes * ZARALai MartinsRafiOB:1995 (28 yo M)Acc No.[id number]:05/05/2024 Patient:?Daniel ZUÑIGA :1995???Age:28 Y???Sex:Male Address:[place], [address] * Refills? Start Doxycycline Hyclate Tablet, 100 MG, Orally, 14 Tablet, 1 tablet, Twice daily, 7 days, Refills=0 Start Moxifloxacin HCl Tablet, 400 MG, Orally, 7 tablets, 1 tablet, Once a day, 7 days, Refills=0 Subjective: * Chief Complaints: * ???Rx * Medical History:? * Surgical History:? * Hospitalization/Major Diagno stic Procedure:? * Medications:? * Allergies:?N.K.D.A.no[Allerg ies Verified] Objective: * Vitals:? * Physical Examination:? Assessment: Plan: * Treatment: * Procedure Codes:? * true * Date:? Generated for Hany avila/Nicole/eThiralsmitting on:?08/14/2024 05:12 PM EST
== END 2024-08-14 14:25 | disposition home or self-care (01) ==
LOC: HO.HAP 14:24
PROVIDERS: PCP Internal Medicine; Visit Provider Otolaryngology
DX: Z46.1 Encounter for fitting and adjustment of hearing aid (principal); H90.3 Sensorineural hearing loss, bilateral
CPT/HCPCS: 92591

== ENCOUNTER 2024-08-17 14:56 | Outpatient (REF) | payer OTHER, SELFPAY ==
--- OUTSIDE RECORDS SUMMARY | 2024-08-17 18:27 | XMS_ITS ---
Author Organization [facility] Address [address] [place] [phone] Care Team Providers Care National Flatbed Truck Driver Name Role Phone DEVYN BETTY Unavailable [phone] Allergies No Known Allergies Results Component Value Reference Range Notes HIV Ab/p24 Ag with Reflex-[id number] Reviewed date:06/15/2024 07:53:29 AM Interpretation:Negative Performing Lab:[facility], [address] [facility], [address], [place], Phone - [phone], Director - [facility] Notes/Report: HIV Ab/p24 Ag Screen Non Reactive Non Reactive HIV-1/HIV-2 antibodies and HIV-1 p24 antigen were NOT detected. There is no laboratory evidence of HIV infection. HIV Negative M genitalium JESSICA, Urine-1800 25 Reviewed date:06/17/2024 07:19:39 AM Interpretation:Negative Performing Lab:[facility], [address] [facility], [place], Phone - [phone], Director - Ryley Notes/Report: Mycoplasma genitalium JESSICA [...] 06/13/2024 Encounters Encounter Location Date Provider Diagnosis [place] [address] [place], [place] [phone] 06/13/2024 BETTY GABAI Counseling, unspecif ied Z71.9 [...] procedures Communication of test results Established Patient: 43620 10 Minutes 06/13/2024 Encounter for screening for [...] procedures Communication of test results Established Patient: 80329 10 Minutes 06/13/2024 Other problems related to lifestyle (ICD-10 - Z72.89) Spent ___ minutes doing the following: Chart Prep Obtaining/review ing history Performing medically necessary exam Counseling/Coord ination of Care Documenting the visit Educating the patient Ordering medication/test/ procedures Communication of test results Established Patient: 21036 10 Minutes 06/13/2024 Encounter for screening for human immunodeficiency virus [HIV] (ICD-10 - Z11.4) Redraw of blood d/t previous TNP Spent ___ minutes doing the following: Chart Prep Obtaining/review ing history Performing medically necessary exam Counseling/Coord ination of Care Documenting the visit Educating the patient Ordering medication/test/ procedures Communication of test results Established Patient: 41800 10 Minutes Plan Of Treatment Treatment Notes [...] Follow Up: prn, Reason: Progress Notes * Jsoe ZUÑIGAOB:1995 (29 yo M)Acc No.[id number]:06/13/2024 Progress Notes Patient:?Daniel ZUÑIGA Provider:?Betty Smith NP :1995???Age:29 Y???Sex:Male Hank e:06/13/2024 Address:[address] [place] [address], [facility], [phone] Subjective: * Chief Complaints: * ???Mycoplasma retestingSTI [...] medication/test/procedures Communication of test results Established Patient: 48524 10 Minutes Plan: * Treatment: 2.?Encounter for screening f or human immunodeficiency virus [HIV]?LAB: HIV Ab/p24 Ag with Reflex-[id number] (Collection Date & Time - 06/13/2024 10:53 AM) Notes: Redraw of blood d/t previous TNP?? * Procedure Codes:? * Follow Up:?prn * Billing Information: * Visit Code:? 24227 Existing - Minimal Complexity (IN USE). * Procedure Codes:? * Sign off status: Completed true * Provider:?Betty Smith NP Date:? [address] [facility] avila/Nicole/eTransmitting on:?08/17/2024 06:27 PM EST History and Physical Notes * [...]
--- OUTSIDE RECORDS SUMMARY | 2024-08-17 18:27 | XMS_ITS | Encounter Summary ---
Author Organization [employer] Address [address] [place] [address] Care Team Providers Care Assembler Knife Name Role Phone Anna Galo MD Primary Care Provider [phone] Reason for Visit * Reason Onset Date Comments Exposure to STD 04/28/2024 Encounter Details Date Type Department Care Team ([facility] st Contact Info) Description 04/28/2024 Nurse Triage Adult Medicine [address] [phone] Anna Galo MD [address] [place] [phone] Exposure to STD Social History Tobacco Use [...] last menstrual period? N/A Protocols used: STI [id number] * Hilary Polina Lira - 04/28/2024 3:24 [...] traveled recently to another state outside of [place], [place], [place], [place], [place], [place], [place]? no o If yes, did you quarantine [...] of accident/Injury: No If yes, gather 3rd green party insurance information Third Constitution Party Information: not applicable PCP: Anna Galo MD Payor: / No coverage found. documented in this encounter Plan of Treatment Not on file documented as of this encounter Visit Diagnoses Not on filedocumented in this encounter Care Teams Assembler Knife Relationship Specialty Start Date End Date Anna Galo MD [address] [place] [phone] PCP - General 08/14/22 documented as of this encounter
--- OUTSIDE RECORDS SUMMARY | 2024-08-17 18:27 | XMS_ITS | Clinical Summary ---
Author Organization [facility] [employer] [facility] Address [address] [place] [address] Care Team Providers Care Energy Engineer Name Role Phone Anna Galo MD Primary Care Provider [phone] Allergies Active Allergy Reactions Criticality Noted Date [...] Care Team Description 06/30/2024 Telephone Adult Medicine [address] [phone] Anna Galo MD Provider Call Back ; Results; Referral 06/21/2024 8:30 AM EST Office Visit Adult Medicine [address] [phone] Ashli Lincoln PA Routine physical examination (Primary Dx); Decreased hearing, unspecified laterality; Seasonal allergies; Need for prophylactic vaccination and inoculation against influenza; Need for Tdap vaccination; Screen for sexually transmitted diseases from Last 3 Months Immunizations Name Administration Dates Next Due DTaP (Infanrix) 6wks to less than 7yo ,09/06/1995,05/11/1995,01/29,1994 [id number] (Pentacel) 2mo to less than 5yo 09/06/1995,05/11/1995,01/29/1995,09/01 [...] care for your loved ones. For example, child care centre director or elderly care for an older adult? [...] LAB CHEMISTRY METHOD 06/21/2024 1:26 PM EST [facility] Blood Venous blood specimen / Unknown Venipuncture / Unknown 06/21/2024 9:15 AM EST 06/21/2024 9:16 AM EST Narrative [facility] - 06/21/2024 1:26 PM EST This [...] SHEPHERD LAB BLOOD ORDERABLES Final Res ult [facility] [address] [place] [address], [place] [phone] * Treponema pallidum antibody with reflex to RPR and particle agglutination (06/21/2024 9:15 AM EST) [facility] T. Pallidum Antibodies Negative Negative LAB CHEMISTRY METHOD 06/21/2024 12:58 PM EST [facility] Blood Venous blood specimen / Unknown Venipuncture / Unknown 06/21/2024 9:15 AM EST 06/21/2024 9:16 AM EST Ashli SHEPHERD LAB BLOOD ORDERABLES Final Res ult Performing Organization Address [facility]/ZIP Co de Phone Number [facility] [address] [place] [address], [place] [phone] * Thyroid stimulating hormone with reflex to free t4 and free t3 (06/21/2024 9:15 AM EST) [facility] TSH 2.71 0.40 - 4.00 mcIU/mL LAB CHEMISTRY METHOD 06/21/2024 2:06 PM EST [facility] Blood Venous blood specimen / Unknown Venipuncture / Unknown 06/21/2024 9:15 AM EST 06/21/2024 9:16 AM EST Ashli SHEPHERD LAB BLOOD ORDERABLES Final Res ult Performing Organization Address City/[facility]/ZIP Co de Phone Number [facility] [address] [place] [address], [place] [phone] * (ABNORMAL) Lipid panel with reflex to direct LDL (06/21/2024 9:15 AM EST) [facility] Cholesterol 218(H) 0 - 200 mg/dL LAB CHEMISTRY METHOD 06/21/2024 1:07 PM [facility] Triglycerides 116 0 - 150 mg/dL LAB CHEMISTRY METHOD 06/21/2024 1:07 PM [facility] HDL 48 >=40 mg/dL LAB CHEMISTRY METHOD 06/21/2024 1:07 PM [facility] LDL Calculated 147(H) 0 - 100 mg/dL LAB CHEMISTRY METHOD 06/21/2024 1:07 PM [facility] VLDL Cholesterol Kevin 23.2 mg/dL LAB CHEMISTRY METHOD 06/21/2024 1:07 PM [facility] Non HDL Chol. (LDL+VLDL) 170(H) <145 mg/dL LAB CHEMISTRY METHOD 06/21/2024 1:07 PM [facility] Chol/HDL Ratio 4.5(H) 0.0 - 4.4 LAB CHEMISTRY METHOD 06/21/2024 1:07 PM [facility] Blood Venous blood specimen / Unknown Venipuncture / Unknown 06/21/2024 9:15 AM EST 06/21/2024 9:16 AM EST us Ashli SHEPHERD LAB BLOOD ORDERABLES Final Res ult [facility] [address] [place] [address], * (ABNORMAL) CBC auto differential (06/21/2024 9:15 AM EST) WBC 6.4 4.8 - 10.8 K/mcL LAB HEMETOLOGY METHOD 06/21/2024 10:39 AM [facility] RBC 4.80 4.50 - 5.50 M/mcL LAB HEMETOLOGY METHOD 06/21/2024 10:39 AM [facility] Hemoglobin 15.0 13.5 - 17.5 g/dL LAB HEMETOLOGY METHOD 06/21/2024 10:39 AM [facility] Hematocrit 46.1 42.0 - 54.0 % LAB HEMETOLOGY METHOD 06/21/2024 10:39 AM [facility] MCV 96.8 79.0 - 98.0 FL LAB HEMETOLOGY METHOD 06/21/2024 10:39 AM [facility] MCH 31.5 27.0 - 32.0 pcg LAB HEMETOLOGY METHOD 06/21/2024 10:39 AM [facility] MCHC 32.5 32.0 - 37.0 g/dL LAB HEMETOLOGY METHOD 06/21/2024 10:39 AM [facility] RDW 10.9(L) 11.0 - 15.0 % LAB HEMETOLOGY METHOD 06/21/2024 10:39 AM [facility] Platelets 267 130 - 400 K/mcL LAB HEMETOLOGY METHOD 06/21/2024 10:39 AM [facility] MPV 10.2 7.0 - 11.0 FL LAB HEMETOLOGY METHOD 06/21/2024 10:39 AM [facility] NRBC 0.0 <1.0 % LAB HEMETOLOGY METHOD 06/21/2024 10:39 AM [facility] NRBC Absolute 0.00 <0.10 K/mcL LAB HEMETOLOGY METHOD 06/21/2024 10:39 AM [facility] Neutrophils Relative 52.2 % LAB HEMETOLOGY METHOD 06/21/2024 10:39 AM [facility] Lymphocytes Relative 32.1 % LAB HEMETOLOGY METHOD 06/21/2024 10:39 AM [facility] Monocytes Relative 13.6 % LAB HEMETOLOGY METHOD 06/21/2024 10:39 AM [facility] Eosinophils Relative 1.3 % LAB HEMETOLOGY METHOD 06/21/2024 10:39 AM [facility] Basophils Relative 0.5 % LAB HEMETOLOGY METHOD 06/21/2024 10:39 AM [facility] Immature Granulocytes Relative 0.3 % LAB HEMETOLOGY METHOD 06/21/2024 10:39 AM EST [facility] Neutrophils Absolute 3.33 1.50 - 7.00 K/mcL LAB HEMETOLOGY METHOD 06/21/2024 10:39 AM [facility] Lymphocytes Absolute 2.05 1.00 - 5.00 K/mcL LAB HEMETOLOGY METHOD 06/21/2024 10:39 AM [facility] Monocytes Absolute 0.87 0.20 - 1.00 K/mcL LAB HEMETOLOGY METHOD 06/21/2024 10:39 AM [facility] Eosinophils Absolute 0.08 0.00 - 0.50 K/[facility] LAB HEMETOLOGY METHOD 06/21/2024 10:39 AM [facility] Basophils Absolute 0.03 0.00 - 0.20 K/mcL LAB HEMETOLOGY METHOD 06/21/2024 10:39 AM [facility] Immature Granulocytes Absolute 0.02 0.00 - 0.03 K/[facility] LAB HEMETOLOGY METHOD 06/21/2024 10:39 AM [facility] Blood Venous blood specimen / Unknown Venipuncture / Unknown 06/21/2024 9:15 AM EST 06/21/2024 9:16 AM EST us Ashli SHEPHERD LAB BLOOD ORDERABLES Final Res ult [facility] [address] [place] [address], * Chlamydia trachomatis and Neisseria gonorrhoeae molecular study (06/21/2024 9:15 AM EST) Neisseria gonorrhoeae PCR Negative Negative LAB MOLECULAR DIAGNOSTICS METHOD 06/21/2024 12:55 PM EST [facility] Chlamydia trachomatis PCR Negative Negative LAB MOLECULAR DIAGNOSTICS METHOD 06/21/2024 12:55 PM [facility] Swab Urine specimen / Unknown Non-blood Collection / Unknown 06/21/2024 9:15 AM EST 06/21/2024 9:16 AM EST us Ashli SHEPHERD LAB MICROBIOLOGY - GENERAL ORD ERABLES Final Result Performing Organization Address [facility]/ZIP Co de Phone Number [facility] [address] [place] [address], [place] [phone] * Hemoglobin A1c (06/21/2024 9:15 AM EST) [facility] Hemoglobin A1C 4.7 <6.5 % LAB CHEMISTRY METHOD 06/21/2024 1:04 PM [facility] Mean Bld Glu Estim. 88 mg/dL LAB CHEMISTRY METHOD 06/21/2024 1:04 PM [facility] Blood Venous blood specimen / Unknown Venipuncture / Unknown 06/21/2024 9:15 AM EST 06/21/2024 9:16 AM EST us Ashli SHEPHERD LAB BLOOD ORDERABLES Final Res ult Performing Organization Address City/[facility]/ZIP Co de Phone Number [facility] [address] [place] [address], [place] [phone] * (ABNORMAL) Comprehensive metabolic panel (06/21/2024 9:15 AM EST) [facility] Sodium 138 133 - 145 mmol/L LAB CHEMISTRY METHOD 06/21/2024 1:07 PM [facility] Potassium 4.3 3.5 - 5.5 mmol/L LAB CHEMISTRY METHOD 06/21/2024 1:07 PM [facility] Chloride 106 96 - 110 mmol/L LAB CHEMISTRY METHOD 06/21/2024 1:07 PM [facility] CO2 27 21 - 32 mmol/L LAB CHEMISTRY METHOD 06/21/2024 1:07 PM [facility] Anion Gap 5 3 - 11 LAB CHEMISTRY METHOD 06/21/2024 1:07 PM [facility] Glucose 98 70 - 100 mg/dL LAB CHEMISTRY METHOD 06/21/2024 1:07 PM [facility] BUN 14 5 - 25 mg/dL LAB CHEMISTRY METHOD 06/21/2024 1:07 PM [facility] Creatinine 1.34(H) 0.70 - 1.30 mg/dL LAB CHEMISTRY METHOD 06/21/2024 1:07 PM [facility] eGFR 73 >=60 mL/min/1. 73m2 LAB CHEMISTRY METHOD 06/21/2024 1:07 PM [facility] Comment:Calculation based on the??Chronic Kidney Disease Epidemiology Collaboration (CKD-EPI) equation refit??without adjustment for race. BUN/Creatinine Ratio 10.4 LAB CHEMISTRY METHOD 06/21/2024 1:07 PM [facility] Calcium 9.1 8.5 - 10.5 mg/dL LAB CHEMISTRY METHOD 06/21/2024 1:07 PM [facility] AST (SGOT) 28 10 - 42 unit/L LAB CHEMISTRY METHOD 06/21/2024 1:07 PM [facility] ALT (SGPT) 29 10 - 60 unit/L LAB CHEMISTRY METHOD 06/21/2024 1:07 PM [facility] Alkaline Phosphatase 93 42 - 121 unit/L LAB CHEMISTRY METHOD 06/21/2024 1:07 PM [facility] Total Protein 7.7 6.0 - 8.0 g/dL LAB CHEMISTRY METHOD 06/21/2024 1:07 PM [facility] Albumin 3.9 3.2 - 5.0 g/dL LAB CHEMISTRY METHOD 06/21/2024 1:07 PM [facility] Total Bilirubin 0.8 0.0 - 1.4 mg/dL LAB CHEMISTRY METHOD 06/21/2024 1:07 PM EST [facility] Blood Venous blood specimen / Unknown Venipuncture / Unknown 06/21/2024 9:15 AM EST 06/21/2024 9:16 AM EST us Ashli SHEPHERD LAB BLOOD ORDERABLES Final Res ult [facility] [address] [place] [address], * Hepatitis C Screening (11/04/2023) Hepatitis C Screening Abstracted us Historical Provider HEALTH MAINTENANCE Final Result from Last 3 Months or Most Recently Relevant to Health Maintenance Insurance [facility] Care Teams Energy Engineer Relationship Specialty Start Date End Date Anna Galo MD [address] [place] [phone] PCP - General 08/14/22
--- OUTSIDE RECORDS SUMMARY | 2024-08-17 18:27 | XMS_ITS ---
Author Organization [facility] Address [address] [phone] Care Team Providers Care Entry Level Machine Operator Name Role Phone ARY, COLIN Unavailable [phone] REASON FOR VISIT Positive results, lab error Social History Sex Assigned At : Social History Observation Description Sex Assigned At Male Encounters Encounter Location Date Provider Diagnosis [address] [phone] 05/22/2024 COLIN MCALLISTER Plan Of Treatment No Information Progress Notes * Lai ZUÑIGARafiOB:1995 (28 yo M)Acc No.[id number]:05/22/2024 Patient:?Daniel ZUÑIGA :1995???Age:28 Y???Sex:Male Address[address], [place], [address] * true * Date:? Generated for Annamariai austin/Nicole/eTransmitting on:?08/17/2024 06:27 PM EST
--- OUTSIDE RECORDS SUMMARY | 2024-08-17 18:27 | XMS_ITS | Patient Health Record ---
Author Organization [facility] Address [address] [place] [address] [phone] Care Team Providers Care Mattress Inspector Name Role Phone ASA SHEPARD Unavailable [phone] ARYCOLIN Jarquin Unavailable [phone] Allergies No Known Allergies Results Component Value Reference Range Notes HIV Ab/p24 Ag with Reflex-08 3935 Reviewed date:06/15/2024 07:53:29 AM Interpretation:Negative Performing Lab:[facility] [place], [address], [address], [place], Phone - [phone], Director - [facility] Notes/Report: HIV Ab/p24 Ag Screen Non Reactive Non Reactive HIV-1/HIV-2 antibodies and HIV-1 p24 antigen were NOT detected. There is no laboratory evidence of HIV infection. HIV Negative M genitalium JESSICA, Urine-1800 25 Reviewed date:06/17/2024 07:19:39 AM Interpretation:Negative Performing Lab:[facility] [place], [address] [facility], Phone - [phone], Director - Ryley Notes/Report: Mycoplasma genitalium JESSICA Negative Negative Written Authorization Reviewed date:06/06/2024 12:20:02 PM Interpretation: Performing Lab:[facility] [place], [address] [facility], [place], Phone - [phone], Director - R[place] Notes/Report: Written Authorization Written Authorization Received. Authorization received from SIGNATURE ON FILE 05-30-2024 Logged by David Courtney Genital Mycoplasmas JESSICA, Uri [id number] Reviewed date:05/25/2024 08:51:37 AM Interpretation:Mycoplasma G. Positive Performing Lab:[facility] [place], [address] [facility], [place], Phone - [phone], Director - [place] Notes/Report: Test(s) 559038-Eczhevrtgi hominis JESSICA; 904159-Vfcdccqsvn spp JESSICA was developed and its performance characteristics determined by [employer] It has not been cleared or approved by the Food and Drug Administration. Mycoplasma genitalium JESSICA Positive Negative Mycoplasma hominis JESSICA Negative Negative Ureaplasma spp JESSICA Negative Negative Ct, Ng, Trich vag by JESSICA-183 160 Reviewed date:05/08/2024 10:49:48 AM Interpretation:Negative Performing Lab:[facility] [place], [address], [address], [place], Phone - [phone], Director - [facility] Notes/Report: Chlamydia by JESSICA Negative Negative Gonococcus by JESSICA Negative Negative Trich vag by JESSICA Negative Negative Genital Mycoplasmas JESSICA, [facility] [id number] Reviewed date:05/22/2024 02:54:11 PM Interpretation:TNP Performing Lab:[facility], [address] [place] [address], Phone - [phone], Director - [facility] Notes/Report: Test(s) 610504-Hqlzfdozlx hominis JESSICA; 277179-Btxddknymt spp JESSICA was developed and its performance characteristics determined by [facility] It has not been cleared or approved by the Food and Drug Administration. Mycoplasma genitalium JESSICA TNP Te st not performed. No Aptima transport received. Mycoplasma hominis JESSICA TNP Test not performed Ureaplasma spp JESSICA TNP Test not performed Request Problem TNP Test not performed. No Aptima transport received. TEST: [id number] Genital Mycoplasmas JESSICA, Swab HCV Antibody RFX to Quant PC [id number] Reviewed date:05/08/2024 10:50:16 AM Interpretation:Negative Performing Lab:[facility] [place], [address], [place], Phone - [phone], Director - [facility] Notes/Report: HCV Ab Non Reactive Non Reactive Interpretation: Not infected with HCV unless early or acute infection is suspected (which may be delayed in an immunocompromised individual), or other evidence exists to indicate HCV infection. T pallidum Screening [place] -215213 Reviewed date:05/08/2024 10:50:24 AM Interpretation:Negative Performing Lab:[facility] [place], [address], [address], [place], Phone - [phone], Director - [facility] Notes/Report: T pallidum Antibodies Non Reactive Non Reactive Hepatitis B Surf Ab Quant-00 6530 Reviewed date:05/08/2024 10:32:50 AM Interpretation:Not Immune Performing Lab:[facility], [address], [address], [place], Phone - [phone], Director - [facility] Notes/Report: Hepatitis B Surf Ab Quant 3.8 Immunity>10 mIU /mL Status of Immunity Anti-HBs Level Inconsistent with Immunity 0.0 - 10.0 Consistent with Immunity >10.0 HBsAg Screen-015208 Reviewed date:05/08/2024 10:49:58 AM Interpretation:Negative Performing Lab:[facility], [address], [address], [place], Phone - [phone], Director - [facility] Notes/Report: HBsAg Screen Negative Negative APTIMA COMBO 2 CT/NG, Throat /Pharyngeal Reviewed date:05/15/2024 12:53:10 PM Interpretation:Negative Performing Lab:[facility], [facility] [place], [address] Gregory Jaime DO Notes/Report: GONORRHEA, AMPLIFIED NEGATIVE NEGATIVE CHLAMYDIA, AMPLIFIED NEGATIVE NEGATIVE DNA Test Results SEX: M : 1995 AGE: 28 [id number] CLINIC ID: [id number] SS: PHYSICIAN: COLIN MCALLISTER CNM COLLECTED BY: [id number] Specimen Source: Throat/Pharyngeal Specimen Type: Swab, Cristobal [...] 06/13/2024 Encounters Encounter Location Date Provider Diagnosis [address] [id number] 05/04/2024 COLIN MCALLISTER Encounter for screen ing [...] [facility] [id number] 06/13/2024 ASA SHEPADR Counseling, unspecif ied Z71.9 ; Encounter for screening for other infectious and parasitic diseases Z11.8 ; Other problems related to lifestyle Z72.89 and Encounter for screening for human immunodeficiency virus [HIV] Z11.[address] [id number] 05/05/2024 COLIN MCALLISTER [address] [id number] 05/22/2024 COLIN MCALLISTER Assessments Encounter Date Diagnosis [...] /procedures Communication of test results Established Patient: 03387 10 Minutes 06/13/2024 Counseling, unspecified (ICD-10 - Z71.9) Spent ___ minutes doing the following: Chart Prep Obtaining/revie wing history Performing medically necessary exam Counseling/Coor dination of Care Documenting the visit Educating the patient Ordering medication/test /procedures Communication of test results Established Patient: 67657 10 Minutes 06/13/2024 Other problems related to lifestyle (ICD-10 - Z72.89) Spent ___ minutes doing the following: Chart Prep Obtaining/revie wing history Performing medically necessary exam Counseling/Coor dination of Care Documenting the visit Educating the patient Ordering medication/test /procedures Communication of test results Established Patient: 79794 10 Minutes 05/04/2024 Other problems related to [...] /procedures Communication of test results Established Patient: 67138 10 Minutes 05/04/2024 Encounter for screening for [...] Insured Coverage Start Date Coverage End Date [place] MEDICA[place] ATT CLAIMS [address] [place] [id number] Daniel Brenner Self - patient is the insured Medical (General) History Medical History History ICD Code Mycoplasma genitalium Surgical History Surgery Date(Month/Year) tonsillectomy
--- OUTSIDE RECORDS SUMMARY | 2024-08-17 18:28 | XMS_ITS ---
Author Organization [facility] Address [address] [place] [address] [id number] Care Team Providers Care Pharmacist Manager Name Role Phone COLIN MCALLISTER Unavailable [phone] Allergies No Known Allergies REASON FOR VISIT [...] Encounters Encounter Location Date Provider Diagnosis [address] [id number] 05/05/2024 COLIN MCALLISTER Plan Of Treatment Medication Medication Name Sig Start Date Stop Date Notes Doxycycline Hyclate 100 MG 1 tablet Oral ly Twice daily for 7 days 05/05/2024 Moxifloxacin HCl 400 MG 1 tablet Orally Once a day for 7 days 05/05/2024 Progress Notes * ZARALai MartinsRafiOB:1995 (28 yo M)Acc No.[id number]:05/05/2024 Patient:?Daniel ZUÑIGA :1995???Age:28 Y???Sex:Male Address:[place] [place], [address] * Refills? Start Doxycycline Hyclate Tablet, 100 [...] true * Date:? Generated for Hany avila/Nicole/eThiralsmitting on:?08/17/2024 06:27 PM EST
== END 2024-08-17 14:57 | disposition home or self-care (01) ==
LOC: HO.HAP 14:56
PROVIDERS: Visit Provider Internal Medicine
DX: Z46.1 Encounter for fitting and adjustment of hearing aid (principal); H90.3 Sensorineural hearing loss, bilateral
CPT/HCPCS: V5011; V5020; V5160; V5261

== ENCOUNTER 2024-09-08 09:39 | Outpatient (REF) | payer OTHER, SELFPAY | END 2024-09-08 09:40 | disposition home or self-care (01) | LOC: HO.HAP 09:39 | PROVIDERS: PCP Internal Medicine; Visit Provider Otolaryngology | DX: Z13.89 Encounter for screening for other disorder (principal) ==

== ENCOUNTER 2024-10-27 13:27 | Outpatient (REF) | payer OTHER, SELFPAY ==
--- OUTSIDE RECORDS SUMMARY | 2024-10-27 13:28 | XMS_ITS | Clinical Summary ---
Author Organization Patient Business Ser [facility] Address [address] [place] [address] Care Team Providers Care Retail Pharmacy Merchandiser Name Role Phone Anna Galo MD Primary Care Provider [phone] Allergies Active Allergy Reactions Criticality Noted Date [...] viral conjunctivitis of both eyes 03/16/20 23 Immunizations Name Administration Dates Next Due DTaP (Infanrix) 6wks to less than 7yo ,09/06/1995,05/11/1995,01/29,1994 [id number] (Pentacel) 2mo to less than 5yo 09/06/1995,05/11/1995,01/29/1995,09/01 [...] 05/31/1998,06/10/1995 Meningococcal MCV4P 10/13/2006 OPV 05/31/1998, 5,01/29/1995,09/01 [employer] SARS-CoV-2 COVID-19, mRNA, LNP-S, preservative free 12/11/2020,11/21/2020 [...] Record ed Within the last 3 months, lawanda mohamud many times did you visit the emergency [...] for your loved ones. For example, child psychologist or elderly care for an older adult? [...] , 03/04/2010, Additional history exists Meningococcal B Vaccine Aged Out No l onger eligible based on patient's age to complete this topic Pneumococcal Vaccine: Pediatrics (0 to 5 Years) and At-Risk Patients (6 to 64 Years) Aged Out No longer eligible based on patient's age to complete this topic RSV Immunization Patients Under 20 months Aged Out No longer eligible based on patient's age to complete this topic Procedures Procedure Name Priority Date/Time Associated Diagnosis Comments HIV 1, 2 ANTIBODY, P24 ANTIGEN WITH REFLEX TO DIFFERENTIATION Routine 06/21/2024 9:15 AM EST Screen for sexually transmitted diseases LIPID PANEL WITH REFLEX TO DIRECT LDL Routine 06/21/2024 9:15 AM EST Routine physical examination HM HEPATITIS C SCREENING Routine 11/04/2023 from Last 3 Months or Most Recently Relevant to Health Maintenance Results * HIV 1,2 antibody, p24 antigen with reflex to differentiation (06/21/2024 9:15 AM EST) HIV Combo AB/AG Negative Negative LAB CHEMISTRY METHOD 06/21/2024 1:26 PM EST [facility] Blood Venous blood specimen / Unknown Venipuncture / Unknown 06/21/2024 9:15 AM EST 06/21/2024 9:16 AM EST Narrative [facility] - 06/21/2024 1:26 PM EST This assay is a 4th generation assay allowing for earlier detection of HIV infection by detecting the presence of the HIV-1 p24 antigen as well as the traditional antibodies to HIV type 1 (including group O) and type 2. ??Use of a 4th generation assay is the current CDC recommendation for HIV screening. Ashli [facility] LAB BLOOD ORDERABLES Final Res ult Performing Organization Address City/[facility]/ZIP Co de Phone Number [facility] [address] [place] [address], [place] [phone] * (ABNORMAL) Lipid panel with reflex to direct LDL (06/21/2024 9:15 AM EST) Cholesterol 218(H) 0 - 200 mg/dL LAB CHEMISTRY METHOD 06/21/2024 1:07 PM EST [facility] Triglycerides 116 0 - 150 mg/dL LAB CHEMISTRY METHOD 06/21/2024 1:07 PM EST [facility] HDL 48 >=40 mg/dL LAB CHEMISTRY METHOD 06/21/2024 1:07 PM EST [facility] LDL Calculated 147(H) 0 - 100 mg/dL LAB CHEMISTRY METHOD 06/21/2024 1:07 PM EST [facility] VLDL Cholesterol Kevin 23.2 mg/dL LAB CHEMISTRY METHOD 06/21/2024 1:07 PM EST [facility] Non HDL Chol. (LDL+VLDL) 170(H) <145 mg/dL LAB CHEMISTRY METHOD 06/21/2024 1:07 PM EST [facility] Chol/HDL Ratio 4.5(H) 0.0 - 4.4 LAB CHEMISTRY METHOD 06/21/2024 1:07 PM [facility] Blood Venous blood specimen / Unknown Venipuncture / Unknown 06/21/2024 9:15 AM EST 06/21/2024 9:16 AM EST Ashli SHEPHERD LAB BLOOD ORDERABLES Final Res ult [facility] [address] [place] [address], * Hepatitis C Screening (11/04/2023) Hepatitis C Screening Abstracted us Historical Provider HEALTH MAINTENANCE Final Result from Last 3 Months or Most Recently Relevant to Health Maintenance Insurance [facility] [employer] Care Teams Retail Pharmacy Merchandiser Relationship Specialty Start Date End Date Anna Galo MD [address] [place] [address] [phone] PCP - General 08/14/22
--- OUTSIDE RECORDS SUMMARY | 2024-10-27 13:28 | XMS_ITS | Encounter Summary ---
Author Organization [facility] Address [address] [place] [address] Care Team Providers Care Lead Generation Representative Name Role Phone Anna Galo MD Primary Care Provider [phone] Reason for Visit * Reason Onset Date Comments Exposure to STD 04/28/2024 Encounter Details Date Type Department Care Team ([facility] st Contact Info) Description 04/28/2024 Nurse Triage Adult Medicine [address] [phone] Anna Galo MD [address] [place] [phone] Exposure to STD Social History Tobacco Use [...] last menstrual period? N/A Protocols used: STI Ghbclsxry-V-[id number] * Hilary Polina Lira - 04/28/2024 3:24 [...] traveled recently to another state outside of [place], [place], [place], [place], [place], [place], [place]? no o If yes, did you quarantine [...] gather 3rd green party insurance information Third Democrat Information: not applicable PCP: Anna Galo MD Payor: / No coverage found. documented in this encounter Plan of Treatment Not on file documented as of this encounter Visit Diagnoses Not on filedocumented in this encounter Care Teams Lead Generation Representative Relationship Specialty Start Date End Date Anna Galo MD [address] [place] [phone] PCP - General 08/14/22 documented as of this encounter
--- OUTSIDE RECORDS SUMMARY | 2024-10-27 13:28 | XMS_ITS | Patient Health Record ---
Author Organization [facility] Address [address] [place] [address] [phone] Care Team Providers Care Rail Car Maintenance Mechanic Name Role Phone ASA SHEPARD Unavailable [phone] ARYCOLIN Jarquin Unavailable [phone] Allergies No Known Allergies Results Component Value Reference Range Notes Written Authorization Reviewed date:06/06/2024 12:20:02 PM Interpretation: Performing Lab:[facility] [place], [facility], Phone - [phone], Director - Ryley Notes/Report: Written Authorization Written Authorization Received. Authorization received from SIGNATURE ON FILE 05-30-2024 Logged by David Courtney Genital Mycoplasmas JESSICA, Uri [id number] Reviewed date:05/25/2024 08:51:37 AM Interpretation:Mycoplasma G. Positive Performing Lab:[facility] [place], [address] [facility], [place], Phone - [phone], Director - Ryley Notes/Report: Test(s) 265007-Oejosvjywt hominis JESSICA; 873907-Pqrvsdjezf spp JESSICA was developed and its performance characteristics determined by [facility]. It has not been cleared or approved by the Food and Drug Administration. Mycoplasma genitalium JESSICA Positive Negative Mycoplasma hominis JESSICA Negative Negative Ureaplasma spp JESSICA Negative Negative M genitalium JESSICA, Urine-1800 25 Reviewed date:06/17/2024 07:19:39 AM Interpretation:Negative Performing Lab:[facility] [place], [address] [facility], [place], Phone - [phone], Director - Ryley Notes/Report: Mycoplasma genitalium JESSICA Negative Negative HIV Ab/p24 Ag with Reflex-08 3935 Reviewed date:06/15/2024 07:53:29 AM Interpretation:Negative Performing Lab:[facility] [address], [address], [place], Phone - [phone], Director - [facility] Notes/Report: HIV Ab/p24 Ag Screen Non Reactive Non Reactive HIV-1/HIV-2 antibodies and HIV-1 p24 antigen were NOT detected. There is no laboratory evidence of HIV infection. HIV Negative Ct, Ng, Trich vag by JESSICA-[id number] Reviewed date:05/08/2024 10:49:48 AM Interpretation:Negative Performing Lab:[facility] [place], [address], [address], [place], Phone - [phone], Director - [facility] Notes/Report: Chlamydia by JESSICA Negative Negative Gonococcus by JESSICA Negative Negative Trich vag by JESSICA Negative Negative Genital Mycoplasmas JESSICA, [facility] [id number] Reviewed date:05/22/2024 02:54:11 PM Interpretation:TNP Performing Lab:[facility], [address] [place] [address], Phone - [phone], Director - [facility] Notes/Report: Test(s) 906288-Wjkrmkwsls hominis JESSICA; 059185-Rsxjjjubjq spp JESSICA was developed and its performance characteristics determined by [facility]. It has not been cleared or approved by the Food and Drug Administration. Mycoplasma genitalium JESSICA TNP Te st not performed. No Aptima transport received. Mycoplasma hominis JESSICA TNP Test not performed Ureaplasma spp JESSICA TNP Test not performed Request Problem TNP Test not performed. No Aptima transport received. TEST: [id number] Genital Mycoplasmas JESSICA, Swab HCV Antibody RFX to Quant PC [id number] Reviewed date:05/08/2024 10:50:16 AM Interpretation:Negative Performing Lab:[facility] [address], [address], [place], Phone - [phone], Director - [facility] Notes/Report: HCV Ab Non Reactive Non Reactive Interpretation: Not infected with HCV unless early or acute infection is suspected (which may be delayed in an immunocompromised individual), or other evidence exists to indicate HCV infection. T pallidum Screening [place] -608517 Reviewed date:05/08/2024 10:50:24 AM Interpretation:Negative Performing Lab:[facility] [address], [address], [place], Phone - [phone], Director - [facility] Notes/Report: T pallidum Antibodies Non Reactive Non Reactive Hepatitis B Surf Ab Quant-00 6530 Reviewed date:05/08/2024 10:32:50 AM Interpretation:Not Immune Performing Lab:[facility], [address], [address], [place], Phone - [phone], Director - [facility] Notes/Report: Hepatitis B Surf Ab Quant 3.8 Immunity>10 mIU /mL Status of Immunity Anti-HBs Level Inconsistent with Immunity 0.0 - 10.0 Consistent with Immunity >10.0 HBsAg Screen-212085 Reviewed date:05/08/2024 10:49:58 AM Interpretation:Negative Performing Lab:[facility], [address], [address], [place], Phone - [phone], Director - [facility] Notes/Report: HBsAg Screen Negative Negative APTIMA COMBO 2 CT/NG, Throat /Pharyngeal Reviewed date:05/15/2024 12:53:10 PM Interpretation:Negative Performing Lab:[facility], [facility] [place], [address] Gregory Jaime DO Notes/Report: GONORRHEA, AMPLIFIED NEGATIVE NEGATIVE CHLAMYDIA, AMPLIFIED NEGATIVE NEGATIVE DNA Test Results SEX: M : 1995 AGE: 28 [id number] CLINIC ID: [id number] SS: PHYSICIAN: COLIN MCALLISTER CNM COLLECTED BY: [id number] Specimen Source: Throat/Pharyngeal Specimen Type: Swab, Cristobal [...] 06/13/2024 Encounters Encounter Location Date Provider Diagnosis [address] [id number] 05/04/2024 COLIN MCALLISTER Encounter for screen ing [...] [facility] [id number] 06/13/2024 ASA SHEPARD Counseling, unspecif ied Z71.9 ; Encounter for screening for other infectious and parasitic diseases Z11.8 ; Other problems related to lifestyle Z72.89 and Encounter for screening for human immunodeficiency virus [HIV] Z11.[address] [id number] 05/05/2024 COLIN MCALLISTER [address] [id number] 05/22/2024 COLIN MCALLISTER Assessments Encounter Date Diagnosis [...] /procedures Communication of test results Established Patient: 59083 10 Minutes 06/13/2024 Counseling, unspecified (ICD-10 - Z71.9) Spent ___ minutes doing the following: Chart Prep Obtaining/revie wing history Performing medically necessary exam Counseling/Coor dination of Care Documenting the visit Educating the patient Ordering medication/test /procedures Communication of test results Established Patient: 55064 10 Minutes 06/13/2024 Other problems related to lifestyle (ICD-10 - Z72.89) Spent ___ minutes doing the following: Chart Prep Obtaining/revie wing history Performing medically necessary exam Counseling/Coor dination of Care Documenting the visit Educating the patient Ordering medication/test /procedures Communication of test results Established Patient: 73337 10 Minutes 05/04/2024 Other problems related to [...] /procedures Communication of test results Established Patient: 46256 10 Minutes 05/04/2024 Encounter for screening for [...] Insured Coverage Start Date Coverage End Date [place] MEDICA[place] ATT CLAIMS [address] [place] [address] [id number] Daniel Brenner Self - patient is the insured Medical (General) History Medical History History ICD Code Mycoplasma genitalium Surgical History Surgery Date(Month/Year) tonsillectomy
== END 2024-10-27 13:28 | disposition home or self-care (01) ==
LOC: HO.HAP 13:27
PROVIDERS: Visit Provider Internal Medicine
DX: Z13.89 Encounter for screening for other disorder (principal)

== ENCOUNTER 2024-11-30 13:48 | Outpatient (REF) | payer OTHER, SELFPAY ==
--- NOTE | 2024-11-30 14:19 | MHC.AU.HA3 ---
Hearing Instrument Follow-Up- Binaural Date of Visit: 11/30/24 Right Ear: Make, Model, Color, Serial Number: Oticon Intent 2 miniRITE-R SN: [id number] Color: Terracotta Air Moving Technician Repair Warranty: 09/14/2027 Air Moving Technician Loss and Damage Warranty: 09/14/2027 [facility] Service Plan: 08/17/2025 Battery Size: Rechargeable Journeyman Millwright/Slim Tube: 2/85 Earmold/Dome/CShell/SlimTip:8mm double ace dome (no retention tail) Type of Wax Guard: miniFit Dispensed By: [facility] Date of Fittin08/17/2024 Left Ear: Make, Model, Color, Serial Number: Oticon Intent 2 miniRITE R SN: [id number] Color: Terracotta Air Moving Technician Repair Warranty: 09/14/2027 Air Moving Technician Loss and Damage Warranty: 09/14/2027 [facility] Service Plan: 08/17/2025 Battery Size: Rechargeable Journeyman Millwright/Slim Tube: 2/85 Earmold/Dome/CShell/SlimTip: 8mm double ace dome (no retention tail) Type of Wax Guard: miniFit Dispensed By: [facility] Date of Fittin08/17/2024 Follow-Up Summary: Picked up repaired left IQBAL. Reconnected to right IQBAL via Genie. Sanchez requested volume increase. Increased highs slightly. Re-paired to cellphone and haven. Has upcoming hearing test scheduled. Recommendations: Hearing instrument follow-up or maintenance as needed. Please contact our clinic with any questions or concerns. Diagnosis Code(s): Primary Diagnosis: H90.3 Bilateral Sensorineural Hearing Loss Signature: Provider: Niko Melo, [facility]
--- OUTSIDE RECORDS SUMMARY | 2024-11-30 15:01 | XMS_ITS | Encounter Summary ---
Author Organization [facility] Address [address] [place] [address] Care Team Providers Care Director Digital Strategy Name Role Phone Anna Galo MD Primary Care Provider [phone] Encounter Details Date Type Department Care Team Description 07/14/2023 Pt. Non Urgent Medical Question [place] [facility] [place] [address] [place] [phone] Ashli Lincoln PA-C [address] [place] [phone] Social History Tobacco Use Types Packs/Day Years Used Date Smoking Tobacco: Never Smokeless Tobacco: Never Alcohol Use Standard Drinks/Week Comments Yes 0 (1 standard drink = 0.6 oz pur e alcohol) occ Sex Assigned at Date Recorded Not on file Job Start Date Occupation Industry Not on file Not on file Not on file documented as of this encounter Plan of Treatment Not on file documented as of this encounter Visit Diagnoses Not on filedocumented in this encounter Care Teams Director Digital Strategy Relationship Specialty Start Date End Date Anna Galo MD [address] [place] [phone] PCP - General Internal Medicine 08/14/22 documented as of this encounter
== END 2024-11-30 13:49 | disposition home or self-care (01) ==
LOC: HO.HAP 13:48
PROVIDERS: Visit Provider Internal Medicine
DX: Z13.89 Encounter for screening for other disorder (principal)

== ENCOUNTER 2024-12-01 14:35 | Outpatient (REF) | payer OTHER, SELFPAY | END 2024-12-01 14:36 | disposition home or self-care (01) | LOC: HO.HAP 14:35 | PROVIDERS: PCP Internal Medicine; Visit Provider Internal Medicine | DX: Z13.89 Encounter for screening for other disorder (principal) ==

== ENCOUNTER 2024-12-04 11:06 | Outpatient (REF) | payer OTHER, SELFPAY | END 2024-12-04 11:07 | disposition home or self-care (01) | LOC: HO.SH 11:06 | PROVIDERS: Visit Provider Internal Medicine | DX: Z13.89 Encounter for screening for other disorder (principal) ==